=== PATIENT | female | born 1960 | race Caucasian/White ===

== ENCOUNTER 2020-02-21 14:15 | Outpatient (CLI) | payer MEDICARE, SELFPAY ==
--- NOTE | 2020-02-21 14:22 | US_ITS ---
WS: [id number] TRANSVAGINAL PELVIC ULTRASOUND HISTORY: POSTMENOPAUSAL VAGINAL BLEEDING COMPARISON: None available. Technically very difficult examination. Uterus: 6.5 cm x 4.9 cm x 4.1 cm. Anteverted and slightly retroflexed uterus. There is marked heterog eneity throughout the myometrium. Complex heterogeneous mass in the anterior myometrium measures 2.5 x 2.1 x 2.8 cm consistent with a fibroid. Endometrium: Endometrium is not visualized. Shadowing from the anterior fibroid. Neither ovary is identified. No free fluid. US/US transvaginal [id number] IMPRESSION: 1. Extremely limited evaluation of the pelvic structures. 2. Endometrium is not visualized. 3. Anterior fibroid. 4. Neither ovary identified.
== END 2020-02-21 14:16 | disposition home or self-care (01) ==
LOC: US 14:18
PROVIDERS: Family Provider Nurse Practitioner Family; PCP Nurse Practitioner Family; Visit Provider Nurse Practitioner Family
DX: D25.9 Leiomyoma of uterus, unspecified (principal); N95.0 Postmenopausal bleeding
CPT/HCPCS: 76830

== ENCOUNTER → 2020-03-13 11:10 | Outpatient (BNVA) | payer MEDICARE, SELFPAY | PROVIDERS: Family Provider Nurse Practitioner Family; PCP Nurse Practitioner Family; Referring Provider Family Medicine; Visit Provider Obstetrics & Gynecology Female Pelvic Medicine and Reconstructive Surgery | DX: N95.0 Postmenopausal bleeding (principal); N39.3 Stress incontinence (female) (male); N84.1 Polyp of cervix uteri; N89.8 Other specified noninflammatory disorders of vagina | CPT/HCPCS: 80053; 81000 ==

== ENCOUNTER → 2020-03-14 07:30 | Outpatient (BNVA) | payer MEDICARE, SELFPAY | PROVIDERS: Family Provider Nurse Practitioner Family; PCP Nurse Practitioner Family; Visit Provider Obstetrics & Gynecology Female Pelvic Medicine and Reconstructive Surgery | DX: N84.1 Polyp of cervix uteri (principal); N89.8 Other specified noninflammatory disorders of vagina | CPT/HCPCS: 88305 ==

== ENCOUNTER → 2020-03-19 08:23 | Outpatient (BNVA) | payer MEDICARE, SELFPAY | PROVIDERS: Family Provider Nurse Practitioner Family; PCP Nurse Practitioner Family; Visit Provider Obstetrics & Gynecology Female Pelvic Medicine and Reconstructive Surgery | DX: N95.0 Postmenopausal bleeding (principal); N93.9 Abnormal uterine and vaginal bleeding, unspecified; N84.0 Polyp of corpus uteri; N84.1 Polyp of cervix uteri; D25.1 Intramural leiomyoma of uterus | CPT/HCPCS: 81000 ==

== ENCOUNTER → 2020-03-20 09:13 | Outpatient (BNVA) | payer MEDICARE, SELFPAY | PROVIDERS: Family Provider Nurse Practitioner Family; PCP Nurse Practitioner Family; Visit Provider Obstetrics & Gynecology Female Pelvic Medicine and Reconstructive Surgery | DX: N95.0 Postmenopausal bleeding (principal) | CPT/HCPCS: 88305 ==

== ENCOUNTER 2020-05-07 08:04 | Day surgery (SDC) | payer MEDICARE, SELFPAY ==
[2020-05-05 11:20] VITALS: BMI 36.4
[2020-05-05 11:42] LABS: Add Urine Microscopic? NO
[2020-05-05 11:49] LABS: Bilirubin Urine Neg (NEGATIVE); Blood Urine Neg (Negative); Glucose Urine UA 4+ (Normal); Ketones Urine Negative (Negative); Leukocyte Esterase Urine Negative (Negative); Nitrate Urine Negative (Negative); Protein Urine Neg (Negative); Specific Gravity, Urine 1.015 (1.005-1.030); Urine Appearance Clear (CLEAR); Urine Color Yellow (Yellow); Urobilinogen Urine Norm (Negative)
[2020-05-05 11:55] LABS: Basophils % 0.4 %; Eosinophils # 0.2 10^3/uL (0.0-0.8); Eosinophils % 1.7 %; Hemoglobin 15.2 g/dL (11.5-15.3); Lymphocytes # 2.8 10^3/uL (0.8-4.8); Lymphocytes % 30.8 %; Mean Corpuscular HGB Conc 31.7 g/dL (30.0-36.0); Mean Corpuscular Hemoglobin 29.2 pg (28.0-34.0); Mean Corpuscular Volume 92.1 fL (81-99); Mean Platelet Volume 9.8 fL (7.4-10.4); Monocytes # 0.5 10^3/uL (0.2-0.9); Monocytes % 5.6 %; Neutrophils # 5.6 10^3/uL (1.8-7.7); Neutrophils % 61.3 %; Nucleated Red Blood Cells % 0 %; Platelet Count 358 10^3/cmm (130-400); Red Blood Count 5.21 10^6/uL (4.1-5.3); Red Cell Distribution Width 13.8 % (12.1-15.1); White Blood Count 9.2 10^3/uL (4.0-10.0)
--- NOTE | 2020-05-05 11:59 | ANES.PREANE2 ---
Pre-Anesthetic Assessment Pre-Anesthetic Assessment: Height/Weight: Height 1.68 m Weight 102.512 kg Preop Diagnosis: Endometrial polyp, postmenopausal bleeding Proposed Procedure: Operation Date: 05/07/20 08:20 Proposed Procedures p Hysteroscopic polypectomy 39259/93636/87014/N84.0/N95.0(Not Applicable) - Loc Nova MD s Dilation and curettage with Myosure 85535(Not Applicable) - Loc Nova MD Familial anesthetic complications: None Social: Social History: No alcohol Comment: former smoker Exam: Pre-Anes Outpt Exam: alert, oriented x 3, clear to auscultation bilaterally and regular rate & rhythm Airway: Cervical ROM: WNL MP: 2 Dentition: Loose (Front R incisors very loose) Additional comments: multiple missing teeth, poor dentition Pulmonary: Pulmonary: None reported CV/HEM: CV/HEM: HTN Comments: rapid heart beat : : None reported Hepatic: Hepatic: None reported GI: GI: GERD Metabolic: Metabolic: DM and Hyperlipidemia Musc/skel: Musc/skel: Fibromyalgia Neuropsych: Neuropsych: Neuropathy ( Legs/feet) Anesthetic Plan: ASA status: 3 Anesthesia: MAC Risk of > 500 ml blood loss (7ml/kg in children): No PFSH Anesthesia PFSH: Medical History Adhesion of abdominal wall Cholecystectomy planned Endometrial polyp Hypercholesteremia Reflux esophagitis Surgical History H/O dilation and curettage Knee joint replacement status Right 2017 [facility] [place] [facility] Family History Mother CAD (coronary artery disease) Diabetes Cancer Cervical Clotting disorder Clot in left leg and had to amputate Hyperlipidemia Hypertension Stroke Father Diabetes Grandmother Cancer Family/Other Colon cancer paternal uncle Denies family history of Dementia Psychiatric illness Chronic kidney disease (CKD) Suicide Anesthesia complication Bleeding disorder Family history of premature coronary artery disease Lung disease Social History Smoking and tobacco status: former smoker Quit status (tobacco): has quit using tobacco Year quit tobacco: 2017 Alcohol intake: never Female Reproductive History: Date of last menstrual period: 07/19/12 Data Anesthesia CBC & Chem 7: 05/05/20 11:38 Other Labs: Laboratory Results - last 48 hr 05/05/20 05/05/20 11:33 11:38 WBC 9.2 RBC 5.21 Hgb 15.2 Hct 48.0 H MCV 92.1 MCH 29.2 MCHC 31.7 RDW 13.8 Plt Count 358 MPV 9.8 Neut % (Auto) 61.3 Lymph % (Auto) 30.8 [place] % (Auto) 5.6 Eos % (Auto) 1.7 Baso % (Auto) 0.4 Neut # (Auto) 5.6 Lymph # (Auto) 2.8 [place] # (Auto) 0.5 Eos # (Auto) 0.2 Baso # (Auto) 0.0 Nucleated RBC % (auto) 0 Nucleated RBCs # 0.0 Urine Color Yellow Urine Appearance Clear Urine pH 6.0 Ur Specific [place] 1.015 Urine Protein Neg Urine Glucose (UA) 4+ H Urine Ketones Negative Urine Blood Neg Urine Nitrate Negative Urine Bilirubin Neg Urine Urobilinogen Norm Ur Leukocyte Esterase Negative Cardiac Studies: No Data to Display
[2020-05-05 12:07] LABS: Alanine Aminotransferase 31 U/L (0-33); Albumin Level 4.3 g/dL (3.5-5.2); Alkaline Phosphatase 87 IU/L (35-105); Anion Gap 14.4 (5-19); Aspartate Amino Transferase 22 U/L (0-32); Blood Urea Nitrogen 24 mg/dL (6-20); Calcium 9.8 mg/dL (8.5-10.5); Carbon Dioxide 30 mmol/L (22-29); Chloride 99 mmol/L (98-107); Glomerular Filtration Rate 73.4 mL/min (90-130); Glucose 188 mg/dL (65-115); Osmolality Calculated 290 mOsm/kg (285-295); Potassium 4.4 mmol/L (3.5-5.1); Sodium 139 mmol/L (136-145); Total Bilirubin 0.4 mg/dL (0.15-1.2); Total Protein 7.3 g/dL (6.6-8.7)
[2020-05-07] VITALS (7 sets, daily range): BP systolic 112–151; BP diastolic 72–90; PULSE 74–94; RESP 14–18; TEMP 36.3–36.9; O2SAT 92–100
--- NOTE | 2020-05-07 08:34 | ANES.PAUD2 ---
Pre-Anesthetic Update Pre-Anesthetic Assessment: Date of Surgery/Procedure: 05/07/20 Preop Diagnosis: Endometrial polyp, postmenopausal bleeding Proposed Procedure: Operation Date: 05/07/20 09:30 Proposed Procedures p Hysteroscopic polypectomy 87936/25489/34797/N84.0/N95.0(Not Applicable) - Loc Nova MD s Dilation and curettage with Myosure 32496(Not Applicable) - Loc Nova MD Any changes to Pre-Anesthetic Assessment?: No Changes from Pre-Anesthetic Assessment: took metoprolol this morning Last Intake: Intake Last Liquid Date 05/06/20 Last Liquid Time 21:00 Last Solid Date 05/06/20 Last Solid Time 21:00 Labs Last 48hrs: Laboratory Results - last 48 hr 05/05/20 05/05/20 05/05/20 11:33 11:38 11:38 WBC 9.2 RBC 5.21 Hgb 15.2 Hct 48.0 H MCV 92.1 MCH 29.2 MCHC 31.7 RDW 13.8 Plt Count 358 MPV 9.8 Neut % (Auto) 61.3 Lymph % (Auto) 30.8 [place] % (Auto) 5.6 Eos % (Auto) 1.7 Baso % (Auto) 0.4 Neut # (Auto) 5.6 Lymph # (Auto) 2.8 [place] # (Auto) 0.5 Eos # (Auto) 0.2 Baso # (Auto) 0.0 Nucleated RBC % (a uto) 0 Nucleated RBCs # 0.0 Sodium 139 Potassium 4.4 Chloride 99 Carbon Dioxide 30 H Anion Gap 14.4 BUN 24 H Creatinine 0.8 GFR Calculation 73.4 L Glucose 188 H Calculated Osmolal ity 290 Calcium 9.8 Total Bilirubin 0.4 AST 22 ALT 31 Alkaline Phosphata se 87 Total Protein 7.3 Albumin 4.3 Globulin 3.0 Urine Color Yellow Urine Appearance Clear Urine pH 6.0 Ur Specific Grav[place] y 1.015 Urine Protein Neg Urine Glucose (UA) 4+ H Urine Ketones Negative Urine Blood Neg Urine Nitrate Negative Urine Bilirubin Neg Urine Urobilinogen Norm Ur Leukocyte Ping ase Negative Blood Type Rho(D) Type Antibody Screen 05/05/20 11:38 WBC RBC Hgb Hct MCV MCH MCHC RDW Plt Count MPV Neut % (Auto) Lymph % (Auto) [place] % (Auto) Eos % (Auto) Baso % (Auto) Neut # (Auto) Lymph # (Auto) [place] # (Auto) Eos # (Auto) Baso # (Auto) Nucleated RBC % (a uto) Nucleated RBCs # Sodium Potassium Chloride Carbon Dioxide Anion Gap BUN Creatinine GFR Calculation Glucose Calculated Osmolal ity Calcium Total Bilirubin AST ALT Alkaline Phosphata se Total Protein Albumin Globulin Urine Color Urine Appearance Urine pH Ur Specific Gravit y Urine Protein Urine Glucose (UA) Urine Ketones Urine Blood Urine Nitrate Urine Bilirubin Urine Urobilinogen Ur Leukocyte Ping ase Blood Type A Positive Rho(D) Type Positive Antibody Screen Negative Vitals: Temperature 97.8 F 05/07/20 08:20 Temperature Source Temporal Artery S can 05/07/20 08:20 Pulse Rate 77 05/07/20 08:20 Respiratory Rate 18 05/07/20 08:20 Blood Pressure 132/81 05/07/20 08:20 Blood Pressure Vickie n 98 05/07/20 08:20 Pulse Oximetry 95 05/07/20 08:20 Oxygen Delivery Me thod 05/07/20 08:20 Exam: Pre-Anes Outpt Exam: alert, oriented x 3, clear to auscultation bilaterally and regular rate & rhythm Cardiac Studies: No Data to Display
[2020-05-07] MEDS: sodium chloride 0.9% 1,000 ML 30 ML IV (08:42)
--- NOTE | 2020-05-07 10:47 | W.PM.OPSUD ---
Surgery/Procedure H&P Update DATE OF PROCEDURE: May 07, 2020 DATE H&P PERFORMED: 05/05/20 H&P UPDATE INFORMATION: I have reviewed H&P completed within last 30 days, I have examined patient prior to procedure and No changes to prior documentation PREOP DIAGNOSIS: Endometrial polyp, postmenopausal bleeding PLANNED PROCEDURE: Operation Date: 05/07/20 09:30 Proposed Procedures p Hysteroscopic polypectomy 25060/19208/80207/N84.0/N95.0(Not Applicable) - Loc Nova MD s Dilation and curettage with Myosure 80764(Not Applicable) - Loc Nova MD
--- NOTE | 2020-05-07 11:46 | PM.OP ---
Operative Report Date of procedure: May 07, 2020 Pre-op Diagnosis: Endometrial polyp, postmenopausal bleeding Post-op diagnosis: same Post-op Findings: endometrial polyps Procedure Done: Hysteroscopic polypectomy Pathology: endometrial polyps and curettings Surgeon: Loc Nova Anesthesia: MAC and General Estimated blood loss (mL): 5 IV fluids (mL): 300 Complications: None Findings: Endometrial polyps Condition: stable Disposition: PACU Brief History: 59-year-old female with postmenopausal bleeding, and endometrial polyp Procedure: After informed consent, the risks included but were not limited to bleeding, infection, injury to internal organs. The patient was counseled on a possible laparotomy and on the potential need for hysterectomy. The patient expressed understanding of the risks involved, all questions were answered, and the patient consented to the procedure. The patient was taken to the operating room where general anesthesia was administered. She was placed in the dorsal lithotomy position and prepped and draped in sterile fashion. A time out procedure was performed. The patient was examined under anesthesia and found to have a normal uterus with normal adnexa. A sterile weight speculum was placed in the vagina. The uterus was then gently sounded to 8 cm, and the cervix was dilated. The 0 degrees MyoSure hysteroscope was advanced gently to the uterine fundus while visualizing the monitor. Survey of the uterine cavity showed: Endometrial polyp on left lateral wall and right lateral wall, the fundus shows Atrophic endometrium; left ostium was visualized, and lateral wall with Atrophic endometrium; right ostium visualized, and lateral wall with Atrophic endometrium; anterior and posterior serrano are with Atrophic endometrium; endocervical canal is normal. The MyoSure device was advanced and the direct visualization the polyps was morcellated without complication. At the end of morcellation the fluid deficit was 100 mL and was estimated at approximately 25 mL were on the floor. There was minimal bleeding noted and the tenaculum removed with goad hemostasis noted. The patient tolerated the procedure well. The patient was taken to the recovery area in stable condition.
[2020-05-08 05:31] LABS: Glucose Point of Care 160 mg/dL (70-110)
== END 2020-05-07 12:55 | disposition home or self-care (01) ==
PROVIDERS: PCP Nurse Practitioner Family; Visit Provider Obstetrics & Gynecology
PROC: 0UDB8ZZ Extraction of Endometrium, Via Natural or Artificial Opening Endoscopic (ICD-10-PCS; CPT 58558; 2020-05-07 09:20)
DX: N84.0 Polyp of corpus uteri (principal); N95.0 Postmenopausal bleeding; Z79.82 Long term (current) use of aspirin; Z87.891 Personal history of nicotine dependence; E78.5 Hyperlipidemia, unspecified; Z79.4 Long term (current) use of insulin; J21.9 Acute bronchiolitis, unspecified; M79.7 Fibromyalgia; E11.40 Type 2 diabetes mellitus with diabetic neuropathy, unspecified
CPT/HCPCS: 58558; 12345; 36415; 36416; 80053; 81003; 82962; 85025; 86850; 86900; 88305; J0330; J0690; J1100; J2001; J2405; J2704; J3010; J3490; J7030

== ENCOUNTER 2020-09-17 09:20 | Outpatient (CLI) | payer MEDICARE, SELFPAY ==
--- NOTE | 2020-09-17 09:32 | CT_ITS ---
WS: [id number] CT HEAD NONCONTRAST HISTORY: HEADACHE TECHNIQUE: Contiguous axial imaging performed through the brain in 2.5 mm imaging. Bone and soft tiss ue windows. All CT scans at [facility] use at least one of these dose optimization techniq ues: automated exposure control; mA and/or kV adjustment per patient size (includes targeted exams wh ere dose is matched to clinical indication); or iterative reconstruction. DLP: 925.91 mGycm COMPARISON: None available. No acute intracranial hemorrhage, midline shift or mass effect. Very mild atrophy and chronic ischemic changes in the white matter. No prior infarct. There is an are a of increased soft tissue and mild increased density centered near the dorsum sellae. This area clem ures 8 mm in diameter. Ventricles: Normal size with no hydrocephalus. Paranasal sinuses: As visualized are clear. Mastoid air cells: Well pneumatized. Calvarium and scalp: Hyperostosis frontalis interna. CT/CT head wo con* [id number] IMPRESSION: 1. No acute intracranial hemorrhage or edema. 2. Increased soft tissue density in the region of the sella turcica. Different ial includes pituitary microadenoma and possible aneurysm. Recommend additional evaluation. MRI brain with and without contrast to evaluate the pituitary glan d and MR angiogram [place] are recommended.
== END 2020-09-17 09:21 | disposition home or self-care (01) ==
LOC: RADWPI 09:24
PROVIDERS: PCP Nurse Practitioner Family; Visit Provider Nurse Practitioner Family
DX: R51.9 Headache, unspecified (principal)
CPT/HCPCS: 70450

== ENCOUNTER 2020-09-30 10:17 | Outpatient (CLI) | payer MEDICARE, SELFPAY ==
--- NOTE | 2020-09-30 10:29 | MR_ITS ---
WS: [id number] MRI HEAD WITH CONTRAST TECHNIQUE: Sagittal T1, T2 axial, T2 axial FLAIR, axial susceptibility weighted imaging, axial diffus ion weighted images, and coronal T2 images were obtained. Pre and post-T1 axial and post T1 coronal i mages. ADC and FSPGR images. CLINICAL INFORMATION: HEADACHES COMPARISON: CT September 17, 2020 FINDINGS: No evidence of restricted diffusion to suggest acute ischemia. Ventricular system and basilar cistern s are patent. Moderate small vessel changes. Mild parenchymal volume loss. Small vessel changes in th e wesley. Normal posterior fossa. Normal vascular flow voids at the skull base. No extra-axial fluid co llections. No evidence of mass or mass effect. Paranasal sinuses and mastoid air cells are well aerat ed. No hemosiderin on the susceptibility weighted images. No abnormal gadolinium enhancement. Normal optic chiasm and pituitary infundibulum. Slightly prominen t but otherwise normal-appearing pituitary tissue with normal homogeneous enhancement. Correlation fo r pituitary function studies. No abnormal pituitary or intrasellar lesions. Normal optic chiasm and p ituitary infundibulum. Normal cavernous sinuses. MR/MR head wo/w con [id number] IMPRESSION: 1. No evidence of restricted diffusion to suggest acute ischemia. 2. Moderate small vessel changes with mild parenchymal volume loss. Small vess el changes in the wesley. 3. Slightly prominent pituitary tissue for patient this age with normal homoge neous enhancement. Normal optic chiasm and pituitary infundibulum. Recommend Co rrelation with pituitary function studies. Pituitary could be followed up in 6 months with MRI of the head with pituitary protocol without and with gadolinium enhancement 4. No abnormal gadolinium enhancement. 5. Paranasal sinuses and mastoid air cells are well aerated. 6. No other significant findings.
== END 2020-09-30 10:18 | disposition home or self-care (01) ==
LOC: RADWPI 10:27
PROVIDERS: PCP Nurse Practitioner Family; Visit Provider Nurse Practitioner Family
DX: R51.9 Headache, unspecified (principal)
CPT/HCPCS: 70553; A9579

== ENCOUNTER 2021-04-29 10:50 | Outpatient (CLI) | payer MEDICARE, SELFPAY ==
--- NOTE | 2021-04-29 11:04 | XR_ITS ---
WS: [id number] Left hand, 3 views, 04/29/2021 Clinical Data: LEFT HAND JOINT PAIN Comparison: None. Findings: No fractures or dislocations are seen. The soft tissues are unremarkable. There is osteoarthritic vika nge between the base of the left first metacarpal and trapezium. There is cystic change and irregular ity of the ungual tuft of the distal phalanx of the left fourth finger which may be from an old injur y. No periarticular demineralization is seen XR/XR hand LT min 3V* [id number] Impression: 1. 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 2. Irregularity of the ungual tuft of the distal phalanx of the left fourth fin katt.
== END 2021-04-29 10:51 | disposition home or self-care (01) ==
LOC: RAD 10:59
PROVIDERS: PCP Nurse Practitioner Family; Visit Provider Nurse Practitioner Family
DX: M79.642 Pain in left hand (principal); M19.042 Primary osteoarthritis, left hand
CPT/HCPCS: 73130

== ENCOUNTER 2021-07-10 16:51 | Emergency (ER) | payer MEDICARE, SELFPAY ==
[2021-07-10] VITALS (7 sets, daily range): BP systolic 131–163; BP diastolic 74–115; PULSE 89–108; RESP 14–20; TEMP 36.6; O2SAT 96–98; BMI 37.1
--- NOTE | 2021-07-10 17:49 | XRR_ITS ---
PROCEDURE INFORMATION: Exam: XR Chest Exam date and time: 07/10/2021 5:49 PM Age: 60 years old Clinical indication: Cough; Additional info: AMS TECHNIQUE: Imaging protocol: XR of the chest. Views: 1 view. COMPARISON: ES surgery / GI images 05/07/2020 10:39 AM FINDINGS: Lungs: The pulmonary interstitium is somewhat prominent in appearance bilaterally in the peripheral lung jules. No focal consolidation. Under inflated lungs in general. Pleural spaces: Unremarkable. No pleural effusion. No pneumothorax. Heart/Mediastinum: Unremarkable. No cardiomegaly. Bones/joints: Unremarkable. XR/XR chest 1V portable [id number] IMPRESSION: 1. No focal consolidation of the lungs. 2. Mild nonspecific interstitial prominence. Atypical pneumonia cannot be excluded.
--- NOTE | 2021-07-10 17:49 | CTR_ITS ---
PROCEDURE INFORMATION: Exam: CT Head Without Contrast Exam date and time: 07/10/2021 5:49 PM Age: 60 years old Clinical indication: Altered mental status/memory loss; Additional info: AMS, ARGUELLO, n/v, lethargic x 2 weeks TECHNIQUE: Imaging protocol: Computed tomography of the head without contrast. Radiation optimization: All CT scans at this facility use at least one of these dose optimization techniques: automated exposure control; mA and/or kV adjustment per patient size (includes targeted exams where dose is matched to clinical indication); or iterative reconstruction. COMPARISON: MR head wo/w con [id number] 09/30/2020 10:18 AM RADIATION DOSE METRICS: Total DLP (mGy-cm): 763.1 FINDINGS: Brain: There is moderate cerebral atrophy. No hemorrhage. Unremarkable white matter. No mass effect. Cerebral ventricles: No ventriculomegaly. Paranasal sinuses: Visualized sinuses are unremarkable. No fluid levels. Mastoid air cells: Visualized mastoid air cells are well aerated. Bones/joints: Unremarkable. No acute fracture. Soft tissues: Unremarkable. CT/CT head wo con* [id number] IMPRESSION: No acute intracranial abnormality. Radiation Dose CTDIVOL = (mGy): DLP = 763.1 (mGy-cm)
--- NOTE | 2021-07-10 18:25 | PC.PHAR ---
PT UNABLE TO CONFIRM MEDICATIONS. TRIED CONTACTING PT'S , HE HAD LEFT THE HOSPITAL, AND COULD NOT REACH HIM. GOING BY MEDICATION HISTORY AND PHARMACY LIST.
[2021-07-10 18:32] LABS: Basophils % 0.3 %; Eosinophils # 0.1 10^3/uL (0.0-0.8); Eosinophils % 1.9 %; Hematocrit 51.6 % (37.0-47.0); Hemoglobin 16.8 g/dL (11.5-15.3); Lymphocytes # 1.9 10^3/uL (0.8-4.8); Lymphocytes % 28.1 %; Mean Corpuscular HGB Conc 32.6 g/dL (30.0-36.0); Mean Corpuscular Hemoglobin 29.3 pg (28.0-34.0); Mean Corpuscular Volume 89.9 fl (81-99); Mean Platelet Volume 10.9 fL (7.4-10.4); Monocytes # 0.8 10^3/uL (0.2-0.9); Monocytes % 11.6 %; Neutrophils # 3.93 10^3/uL (1.8-7.7); Neutrophils % 57.8 %; Nucleated Red Blood Cells % 0 %; Platelet Count 238 10^3/cmm (130-400); Red Blood Count 5.74 10^6/uL (4.1-5.3); Red Cell Distribution Width 13.6 % (12.1-15.1); White Blood Count 6.8 10^3/uL (4.0-10.0)
[2021-07-10 18:38] LABS: Glucose Point of Care 252 mg/dL (70-110)
[2021-07-10] MEDS: sodium chloride 0.9% 1,000 ML 999 ML IV (18:49)
[2021-07-10 19:02] LABS: Lactate (Lactic Acid level) 3.5 mmol/L (0.5-2.2)
--- NOTE | 2021-07-10 19:08 | ED_ITS ---
HPI - Altered Mental Status General: Chief Complaint: Altered Mental Status Stated Complaint: n/v, hot flashes, headache, lethargic Time Seen by Provider: 07/10/21 18:12 History of Present Illness: HPI narrative: 60-year-old female presents from home. She is evidently been vomiting, and having some coughing for the past week or so. She denies fever currently she says that she coughs so hard she vomits, and also loses control of her bladder when she does. She states she is tired, and altered mentally, that she is not thinking straight. She is mildly short of breath. She has a positive exposure to COVID-19, although her contacts are out of quarantine now. MD complaint: altered mental status Onset (ago): day(s) Severity: moderate Consistency of symptoms: Waxing and Waning Context: other Associated symptoms: Reports other Treatments prior to arrival: other Review of Systems Const: Reports: body aches and fatigue; Denies: fever(s) or chills Eyes: Denies: change in vision Card: Denies: chest pain Resp: Reports: dyspnea and non-productive cough GI: Reports: nausea and vomiting; Denies: abdominal pain or hematochezia : Reports: urinary frequency and dribbling; Denies: flank pain PFS ED PFSH: Medical History (Updated 07/10/21 @ 20:57 by Raffaele Keller DO) Adhesion of abdominal wall Aftercare following surgery of the genitourinary system Cholecystectomy planned Endometrial polyp Hypercholesteremia Reflux esophagitis Surgical History H/O dilation and curettage Knee joint replacement status Right 2017 [place], [place] Left 2002 [facility] Family History Mother CAD (coronary artery disease) Diabetes Cancer Cervical Clotting disorder Clot in left leg and had to amputate Hyperlipidemia Hypertension Stroke Father Diabetes Grandmother Cancer Family/Other Colon cancer paternal uncle Denies family history of Dementia Psychiatric illness Chronic kidney disease (CKD) Suicide Anesthesia complication Bleeding disorder Family history of premature coronary artery disease Lung disease Social History (Updated 06/13/20 @ 08:23 by Sue Leon RN) Smoking and tobacco status: former smoker Quit status (tobacco): has quit using tobacco Year quit tobacco: 2017 Alcohol intake: never Female Reproductive History: Date of last menstrual period: 07/19/12 Physical Exam Const: COMMON NORMALS: alert GENERAL APPEARANCE: cooperative and ill appearing ORIENTATION/CONSCIOUSNESS: Yes awake, Yes oriented to person and Yes oriented to place; not oriented to time HENMT: COMMON NORMALS: normocephalic HEAD & SCALP: normocephalic Chest: COMMONS NORMALS: normal inspection of the chest Resp: COMMON NORMALS: normal respiratory effort, No use of accessory muscles and clear to auscultation bilaterally AUSCULTATION: clear to auscultation bilaterally Cardio: COMMON NORMALS: regular rhythm RATE: tachycardic RHYTHM: regular rhythm HEART SOUNDS: no murmurs GI: COMMON NORMALS: Normal to inspection, nondistended, normoactive bowel sounds present, Soft to palpation and non-tender PALPATION: Yes Soft to palpa tion Neuro: SENSORIUM/ORIENTATION: Yes alert, Yes oriented to person, Yes oriented to place and No oriented to time Skin: COMMON NORMALS: no rashes or lesions noted GENERAL SKIN EXAM: no rashes or lesions noted Course Vital Signs: Vital signs: Vital Signs Temperature 97.9 F 07/10/21 21:00 Pulse Rate 89 07/10/21 21:00 Respiratory Rate 14 07/10/21 21:00 Blood Pressure 154/90 07/10/21 21:00 Pulse Oximetry 97 07/10/21 21:00 MDM - Altered Mental Status MDM Narrative: Medical decision making narrative: 60-year-old Covid positive female primarily here with vomiting. She shows signs of dehydration. She is however normotensive. Her heart rates around 100. Oxygen saturations are 97 to 98% on room air. Respirations are 16. Her chest x-ray shows minimal changes related to pneumonitis. Her belly is nontender. Her bicarbonate level is 18. Other laboratory is essentially benign. She has been given a liter of fluids here, and is feeling better. We discussed monoclonal antibody infusion with her, risks and potential benefits. She has agreed to take the medication. She is nonhypoxic, not requiring oxygen, and should go home. Symptomatic treatment otherwise. Lab Data: Labs: Lab Results 07/10/21 07/10/21 07/10/21 Range/Units 18:00 18:00 18:00 WBC 6.8 (4.0-10.0) 10^3/ uL RBC 5.74 H (4.1-5.3) 10^6/u L Hgb 16.8 H (11.5-15.3) g/dL Hct 51.6 H (37.0-47.0) % MCV 89.9 (81-99) fl MCH 29.3 (28.0-34.0) pg MCHC 32.6 (30.0-36.0) g/dL RDW 13.6 (12.1-15.1) % Plt Count 238 (130-400) 10^3/c mm MPV 10.9 H (7.4-10.4) fL Neut % (Auto) 57.8 % Lymph % (Auto) 28.1 % Upson % (Auto) 11.6 % Eos % (Auto) 1.9 % Baso % (Auto) 0.3 % Neut # (Auto) 3.93 (1.8-7.7) 10^3/u L Lymph # (Auto) 1.9 (0.8-4.8) 10^3/u L Upson # (Auto) 0.8 (0.2-0.9) 10^3/u L Eos # (Auto) 0.1 (0.0-0.8) 10^3/u L Baso # (Auto) 0.0 (0.0-0.1) 10^3/u L Nucleated RBC % (a uto) 0 % Nucleated RBCs # 0.0 /100WBC Sodium 133 L (136-145) mmol/L Potassium 4.4 (3.5-5.1) mmol/L Chloride 95 L (98-107) mmol/L Carbon Dioxide 18 L (22-29) mmol/L Anion Gap 24.4 H (5-19) BUN 20 (8-23) mg/dL Creatinine 0.7 (0.5-0.9) mg/dL GFR Calculation 85.4 L (90-130) mL/min Glucose 233 H (65-115) mg/dL POC Glucose (70-110) mg/dL Calculated Osmolal ity 286 (285-295) mOsm/k g Lactate 3.5 H (0.5-2.2) mmol/L Calcium 9.3 (8.5-10.5) mg/dL Magnesium 1.9 (1.7-2.3) mg/dL Total Bilirubin 1.1 (0.15-1.2) mg/dL AST 40 H (0-32) U/L ALT 37 H (0-33) U/L Alkaline Phosphata se 118 H (35-105) IU/L C-Reactive Protein 8.1 H (0.0-4.9) mg/L Total Protein 7.7 (6.6-8.7) g/dL Albumin 4.0 (3.5-5.2) g/dL Globulin 3.7 (1.3-4.6) g/dL Procalcitonin 0.08 (0-0.5) ng/mL TSH 2.61 (0.27-4.20) uIU/ mL Urine Color (Yellow) Urine Appearance (CLEAR) Urine pH (5-7) Ur Specific Gravit y (1.005-1.030) Urine Protein (Negative) Urine Glucose (UA) (Normal) Urine Ketones (Negative) Urine Blood (Negative) Urine Nitrate (Negative) Urine Bilirubin (Negative) Urine Urobilinogen (Negative) mg/dL Ur Leukocyte Ping ase (Negative) Urine RBC (0-2) /hpf Urine WBC (0-5) /hpf Ur Squamous Epith Cells (0-5) /hpf Amorphous Sediment Urine Bacteria (NONE) /hpf Hyaline Casts /lpf Urine Mucus /hpf SARS-CoV-2 Ag (Rap id) (Negative) 07/10/21 07/10/21 07/10/21 Range/Units 18:13 18:33 18:50 WBC (4.0-10.0) 10^3/ uL RBC (4.1-5.3) 10^6/u L Hgb (11.5-15.3) g/dL Hct (37.0-47.0) % MCV (81-99) fl MCH (28.0-34.0) pg MCHC (30.0-36.0) g/dL RDW (12.1-15.1) % Plt Count (130-400) 10^3/c mm MPV (7.4-10.4) fL Neut % (Auto) % Lymph % (Auto) % Upson % (Auto) % Eos % (Auto) % Baso % (Auto) % Neut # (Auto) (1.8-7.7) 10^3/u L Lymph # (Auto) (0.8-4.8) 10^3/u L Upson # (Auto) (0.2-0.9) 10^3/u L Eos # (Auto) (0.0-0.8) 10^3/u L Baso # (Auto) (0.0-0.1) 10^3/u L Nucleated RBC % (a uto) % Nucleated RBCs # /100WBC Sodium (136-145) mmol/L Potassium (3.5-5.1) mmol/L Chloride (98-107) mmol/L Carbon Dioxide (22-29) mmol/L Anion Gap (5-19) BUN (8-23) mg/dL Creatinine (0.5-0.9) mg/dL GFR Calculation (90-130) mL/min Glucose (65-115) mg/dL POC Glucose 252 H (70-110) mg/dL Calculated Osmolal ity (285-295) mOsm/k g Lactate (0.5-2.2) mmol/L Calcium (8.5-10.5) mg/dL Magnesium (1.7-2.3) mg/dL Total Bilirubin (0.15-1.2) mg/dL AST (0-32) U/L ALT (0-33) U/L Alkaline Phosphata se (35-105) IU/L C-Reactive Protein (0.0-4.9) mg/L Total Protein (6.6-8.7) g/dL Albumin (3.5-5.2) g/dL Globulin (1.3-4.6) g/dL Procalcitonin (0-0.5) ng/mL TSH (0.27-4.20) uIU/ mL Urine Color Yellow (Yellow) Urine Appearance Sl cloudy A (CLEAR) Urine pH 5 (5-7) Ur Specific Gravit y 1.025 (1.005-1.030) Urine Protein Neg (Negative) Urine Glucose (UA) 4+ H (Normal) Urine Ketones 3+ H (Negative) Urine Blood 2+ H (Negative) Urine Nitrate Negative (Negative) Urine Bilirubin Neg (Negative) Urine Urobilinogen 1 H (Negative) mg/dL Ur Leukocyte Ping ase Negative (Negative) Urine RBC 0-4 H (0-2) /hpf Urine WBC 5-10 H (0-5) /hpf Ur Squamous Epith Cells 5-10 H (0-5) /hpf Amorphous Sediment Not Reportable Urine Bacteria 1+ H (NONE) /hpf Hyaline Casts 0-4 H /lpf Urine Mucus 2+ /hpf SARS-CoV-2 Ag (Rap id) Positive H (Negative) Discharge Plan Discharge Patient Disposition: Home Clinical Impression: COVID-19, Viral gastroenteritis Condition: Stable Prescriptions: New Zofran 4 mg tablet 4 mg PO Q6H PRN (Reason: nausea and vomiting) Qty: 10 RF: 0 No Action atorvastatin 10 mg tablet 10 mg PO BEDTIME RF: 0 citalopram 40 mg tablet 40 mg PO DAILY RF: 0 fluticasone propionate 50 mcg/actuation spray,suspension 1 spray INTRANASAL DAILY PRN (Reason: congestion) RF: 0 gabapentin 300 mg capsule 600 mg PO TID RF: 0 lisinopril-hydrochlorothiazide 20-25 mg tablet 1 tab PO DAILY RF: 0 Savella 50 mg tablet 50 mg PO BID RF: 0 omeprazole 40 mg capsule,delayed release(DR/EC) 40 mg PO DAILY RF: 0 bupropion HCl 150 mg tablet sustained-release 12 hr 150 mg PO BID RF: 0 Invokana 300 mg tablet 300 mg PO DAILY RF: 0 Toujeo Max U-300 SoloStar 300 unit/mL (3 mL) insulin pen 90 unit SUBCUT DAILY RF: 0 metoprolol tartrate 25 mg tablet 25 mg PO BID RF: 0 insulin aspart U-100 [Novolog Flexpen U-100 Insulin] 100 unit/mL (3 mL) insulin pen See Rx Instructions SUBCUT TID RF: 0 cinnamon bark [Cinnamon] 500 mg capsule 1,000 mg PO QID RF: 0 Ozempic 1 mg/dose (2 mg/1.5 mL) pen injector 1 mg SUBCUT Q7D RF: 0 vitamin B complex [B Complex-Vitamin B12] Tablet 2 tab PO DAILY RF: 0 cholecalciferol (vitamin D3) 50 mcg (2,000 unit) tablet,chewable 2,000 unit PO DAILY RF: 0 aspirin [Darryn Chewable Aspirin] 81 mg tablet,chewable 81 mg PO DAILY RF: 0 Hold Instructions: Resume on 06/15/20. ibuprofen 400 mg tablet 400 mg PO TID PRN (Reason: fever or pain) Qty: 30 RF: 0 Humalog KwikPen Insulin 100 unit/mL insulin pen See Rx Instructions .ROUTE .COMPLEX RF: 0 lisinopril 20 mg Tablet 20 mg PO DAILY RF: 0 meloxicam 15 mg Tablet 15 mg PO DAILY RF: 0 Farxiga 10 mg tablet 10 mg PO DAILY RF: 0 Discharge Orders: Discharge ED (Routine); Ordered 07/10/21 Ordered By: Raffaele Keller Referrals: Moises Logan NP [Primary Care Provider] - 4-7 days Discharge Diet: Advance as tolerated and Clear Liquid Patient Instructions: Gastroenteritis (ED) Activity Restrictions/Additional Instructions: Return for worsening shortness of breath, trouble breathing, mental status changes, continued vomiting despite medication, other concerning symptoms. Take the nausea medicine scheduled every 6 hours for the first 24 hours, then as needed. Coding Level of Care Code ED Wellness Assistant for Nica Fwestela Exam Detailed
[2021-07-10 19:12] LABS: Procalcitonin 0.08 ng/mL (0-0.5); Thyroid Stimulating Hormone 2.61 uIU/mL (0.27-4.20)
[2021-07-10 19:24] LABS: Alanine Aminotransferase 37 U/L (0-33); Alkaline Phosphatase 118 IU/L (35-105); Anion Gap 24.4 (5-19); Aspartate Amino Transferase 40 U/L (0-32); Blood Urea Nitrogen 20 mg/dL (8-23); C Reactive Protein 8.1 mg/L (0.0-4.9); Calcium 9.3 mg/dL (8.5-10.5); Carbon Dioxide 18 mmol/L (22-29); Chloride 95 mmol/L (98-107); Globulin 3.7 g/dL (1.3-4.6); Glomerular Filtration Rate 85.4 mL/min (90-130); Glucose 233 mg/dL (65-115); Magnesium 1.9 mg/dL (1.7-2.3); Osmolality Calculated 286 mOsm/kg (285-295); Potassium 4.4 mmol/L (3.5-5.1); Sodium 133 mmol/L (136-145); Total Bilirubin 1.1 mg/dL (0.15-1.2); Total Protein 7.7 g/dL (6.6-8.7)
[2021-07-10 19:28] LABS: Blood Urine 2+ (Negative); Ketones Urine 3+ (Negative); Nitrate Urine Negative (Negative); Protein Urine Neg (Negative); Specific Gravity, Urine 1.025 (1.005-1.030); Urine Color Yellow (Yellow); pH Urine 5 (5-7)
[2021-07-10 19:29] LABS: Add Urine Microscopic? YES; Bilirubin Urine Neg (Negative); Leukocyte Esterase Urine Negative (Negative); Urobilinogen Urine 1 mg/dL (Negative)
[2021-07-10 19:30] LABS: Bacteria Urine 1+ /hpf; Mucus Urine 2+ /hpf; RBC Urine 0-4 /hpf (0-2)
[2021-07-10 19:31] LABS: Hyaline Casts Urine 0-4 /lpf
[2021-07-10 19:32] LABS: Add Urine Culture? No; Glucose Urine UA 4+ (Normal)
[2021-07-10 19:36] LABS: SARS Covid-2 Antigen Positive (Negative)
[2021-07-12 22:28] LABS: Quest SARS-CoV-2 RNA DETECTED (NOT DETECTED)
--- NOTE | 2021-07-13 14:19 | PC.NURSE ---
pt called and message left for her to return a call.
[2021-07-18 17:53] LABS: ABG PCO2 25.1 mmHg (35-45); ABG PH Result 7.41 (7.35-7.45); Arterial Blood Gas Hematocrit 46.3 % (37-47); Base Excess ABG -6.6 mmol/L (-2.0-2.0); Blood Gas Allen Test Pos; Blood Gas Operator Identificat HARKR; Blood Gas Sample Site Radial, left; Blood Gas Sample Type Arterial; HCO3 ABG 16.1 mmol/L (22-26); Oxygen Device ROOM AIR; PO2 ABG 93.3 mmHg (80.0-100.0)
== END 2021-07-10 23:06 | disposition home or self-care (01) ==
PROVIDERS: Emergency Medicine; Emergency Provider Emergency Medicine; PCP Nurse Practitioner Family
DX: U07.1 COVID-19 (principal); A08.4 Viral intestinal infection, unspecified; E78.00 Pure hypercholesterolemia, unspecified; Z87.891 Personal history of nicotine dependence
CPT/HCPCS: 36416; 36600; 70450; 71045; 80053; 81001; 82803; 82962; 83605; 83735; 84145; 84443; 85025; 86140; 87040; 87426; 87635; 96365; 99284; J7030

== ENCOUNTER 2022-03-11 09:04 | Outpatient (CLI) | payer MEDICARE, SELFPAY ==
--- NOTE | 2022-03-11 09:12 | MM_ITS ---
WS: [id number] Bilateral screening 3D tomosynthesis digital mammogram, 03/11/2022 Clinical Data: SCREENING Comparison: 12/21/2016, 05/19/2009. Findings: The breast parenchymal pattern shows heterogeneous density No spiculated masses or clustered calcific ations are seen. There are no secondary signs of carcinoma. There are scattered calcifications throug hout both breasts which are small and not clustered. There are small lymph nodes in both axilla. MM/[id number] Impression: 1. Negative bilateral mammogram unchanged. 2. Recommend annual screening mammograms. BIRADS: 1-Negative FOLLOW UP: 1 Year Follow-up The CAD supervisor food check[employer] and cashiers was used.
== END 2022-03-11 09:05 | disposition home or self-care (01) ==
PROVIDERS: PCP Nurse Practitioner Family; Visit Provider Nurse Practitioner Family
DX: Z12.31 Encounter for screening mammogram for malignant neoplasm of breast (principal)
CPT/HCPCS: 77063; 77067